=== PATIENT | female | born 1965 | race Caucasian/White ===

== ENCOUNTER 2017-12-06 21:16 | Inpatient (IN) | payer BC ==
[~2017-12-06] VITALS: Ht 165.1 cm; Wt 113.4 kg
[2017-12-06] MEDS ORDERED: NITROGLYCERIN OINT 1GM/INCH UDPKT TD ONE (22:45)
[2017-12-06 23:13] LABS: BASOPHILS % 0.6 % (0.0-2.0); EOSINOPHILS % 3.2 % (0.0-5.0); HEMATOCRIT. 36.5 % (36.0-48.0); HEMOGLOBIN. 11.1 g/dL (12.0-16.0); LYMPHOCYTES % 12.1 % (20.0-50.0); MEAN CORPUSCULAR HEMOGLOBIN 20.2 pg (28.0-32.0); MEAN CORPUSCULAR VOLUME 66.7 fL (81.0-99.0); MEAN PLATELET VOLUME 9.1 fl (7.4-10.4); NEUTROPHILS % 79.1 % (40.0-76.0); PLATELET 291 x1000/uL (130-400); RED BLOOD CELL COUNT 5.48 mill/uL (4.2-5.4); RED CELL DISTRIBUTION WIDTH 22.3 % (11.6-14.6)
[2017-12-06 23:16] LABS: CHLORIDE 109 mEq/L (98-107)
[2017-12-06 23:19] LABS: D-DIMER 1.72 mg/L FEU (<0.50); INR 0.9; PROTHROMBIN TIME 9.4 sec (9.1-11.1)
[2017-12-07] MEDS ORDERED: AZITHROMYCIN 500 MG in DEXT 5% WATER 250 ML IV ONE ×2
[2017-12-07] MEDS ORDERED: CEFTRIAXONE 1 G PREMIX 50 ML IV ONE
[2017-12-07] MEDS ORDERED: ONDANSETRON HCL 4MG/2ML INJ IV PRN (00:15)
[2017-12-07] MEDS ORDERED: IPRATROPIUM/ALBUTEROL 0.5-3(2.5)MG/3ML NEB INH PRN (00:15)
[2017-12-07] MEDS ORDERED: ACETAMINOPHEN 325MG TABLET PO PRN (00:15)
[2017-12-07] MEDS ORDERED: MAGNESIUM/ALUMINUM HYDROXIDE/SIMETHICONE 30ML UDC PO PRN (00:15)
[2017-12-07] MEDS ORDERED: CLONIDINE 0.1MG TABLET PO PRN (00:15)
[2017-12-07] MEDS ORDERED: IOHEXOL-350 100 ML BOTTLE ONE (01:07)
[2017-12-07] MEDS ORDERED: FUROSEMIDE 40MG/4ML VIAL IVP NR (01:30)
[2017-12-07 02:12] LABS: PLATELET ESTIMATE NORMAL
[2017-12-07 04:00] VITALS: BP 162/100
[2017-12-07] MEDS ORDERED: PROP80TA4 PO (04:43)
[2017-12-07 04:44] VITALS: BP 162/100
[2017-12-07 08:00] VITALS: BP 156/90
[2017-12-07 11:21] LABS: HEMATOCRIT 34.3 % (36.0-48.0); HEMOGLOBIN 10.4 g/dL (12.0-16.0); MEAN CORPUSCULAR HEMOGLOBIN 20.1 pg (28.0-32.0); PLATELET 252 x1000/uL (130-400); RED BLOOD CELL COUNT 5.19 mill/uL (4.2-5.4); RED CELL DISTRIBUTION WIDTH 22.2 % (11.6-14.6)
[2017-12-07] MEDS ORDERED: LOSARTAN POTASSIUM 50 MG TABLET PO SCH ×2 (11:45→21:00)
[2017-12-07 11:59] LABS: CHLORIDE 106 mEq/L (98-107)
[2017-12-07 12:00] VITALS: BP 148/78
[2017-12-07 12:14] LABS: PHOSPHORUS 3.3 mg/dL (2.5-4.9)
[2017-12-07] MEDS: PROPRANOLOL HCL 20MG TABLET PO SCH ×2 (12:32→21:12)
[2017-12-07] MEDS: IPRATROPIUM/ALBUTEROL 0.5-3(2.5)MG/3ML NEB HHN SCH ×2 (14:27→20:05)
[2017-12-07] MEDS: FUROSEMIDE 40MG/4ML VIAL IVP SCH (17:10)
[2017-12-07] MEDS: LOSARTAN POTASSIUM 50 MG TABLET PO SCH ×2 (17:10→21:12)
[2017-12-07 20:00] VITALS: BP 154/89
[2017-12-07 20:13] LABS: CLARITY URINE CLEAR (CLEAR); COLOR URINE YELLOW (YELLOW); KETONES URINE NEGATIVE (NEGATIVE); LEUKOCYTE ESTERASE URINE NEGATIVE (NEGATIVE); NITRITE URINE NEGATIVE (NEGATIVE); OCCULT BLOOD URINE NEGATIVE (NEGATIVE); PROTEIN URINE NEGATIVE (NEGATIVE); SPECIFIC GRAVITY URINE 1.014 (1.005-1.030); UROBILINOGEN URINE 0.2 E.U./dL (0.2-1.0)
[2017-12-07 20:46] LABS: *AMPHETAMINES SCREEN URINE NEGATIVE (NEGATIVE); *BARBITURATES SCREEN URINE NEGATIVE (NEGATIVE); *BENZODIAZEPINES SCREEN URINE NEGATIVE (NEGATIVE)
[2017-12-07 20:47] LABS: *COCAINE SCREEN URINE NEGATIVE (NEGATIVE); CANNABINOID URINE SCREEN NEGATIVE (NEGATIVE); METHADONE URINE SCREEN NEGATIVE (NEGATIVE); OPIATES URINE SCREEN NEGATIVE (NEGATIVE); PHENCYCLIDINE URINE SCREEN NEGATIVE (NEGATIVE)
[2017-12-08] VITALS: BP 157/87
[2017-12-08] MEDS: IPRATROPIUM/ALBUTEROL 0.5-3(2.5)MG/3ML NEB HHN SCH (02:05)
[2017-12-08 04:00] VITALS: BP 144/66
[2017-12-08] MEDS: FUROSEMIDE 40MG/4ML VIAL IVP SCH ×2 (06:30→17:08)
[2017-12-08 07:27] LABS: BASOPHILS % 0.5 % (0.0-2.0); EOSINOPHILS % 3.8 % (0.0-5.0); HEMATOCRIT. 34.4 % (36.0-48.0); HEMOGLOBIN. 10.6 g/dL (12.0-16.0); LYMPHOCYTES % 19.1 % (20.0-50.0); MEAN CORPUSCULAR HEMOGLOBIN 20.3 pg (28.0-32.0); MEAN PLATELET VOLUME 9.1 fl (7.4-10.4); NEUTROPHILS % 67.6 % (40.0-76.0); PLATELET 252 x1000/uL (130-400); RED BLOOD CELL COUNT 5.21 mill/uL (4.2-5.4); RED CELL DISTRIBUTION WIDTH 21.7 % (11.6-14.6)
[2017-12-08 07:34] LABS: CHLORIDE 106 mEq/L (98-107)
[2017-12-08 07:37] LABS: HDL CHOLESTEROL 51 mg/dL (40-59); LDL CHOLESTEROL 128 mg/dL (5-100)
[2017-12-08 08:00] VITALS: BP 151/101
[2017-12-08] MEDS: LOSARTAN POTASSIUM 50 MG TABLET PO SCH ×2 (08:43→20:47)
[2017-12-08] MEDS: PROPRANOLOL HCL 20MG TABLET PO SCH ×2 (08:44→20:48)
[2017-12-08] MEDS ORDERED: FUROSEMIDE 40MG/4ML VIAL IVP SCH (09:00)
[2017-12-08 12:00] VITALS: BP 147/81
[2017-12-08] MEDS: AMLODIPINE 5MG TABLET PO SCH ×2 (13:22→20:47)
[2017-12-08] MEDS: POTASSIUM CHLORIDE 20MEQ TABLET SR PO SCH (13:22)
[2017-12-08 16:00] VITALS: BP 134/67
[2017-12-08 20:00] VITALS: BP 133/70
[2017-12-09] VITALS: BP 130/72
[2017-12-09 04:00] VITALS: BP 148/75
[2017-12-09] MEDS: FUROSEMIDE 40MG/4ML VIAL IVP SCH ×2 (06:33→06:38)
[2017-12-09 06:59] LABS: BASOPHILS % 0.4 % (0.0-2.0); EOSINOPHILS % 3.9 % (0.0-5.0); HEMATOCRIT. 36.6 % (36.0-48.0); HEMOGLOBIN. 11.5 g/dL (12.0-16.0); LYMPHOCYTES % 18.6 % (20.0-50.0); MEAN CORPUSCULAR HEMOGLOBIN 20.7 pg (28.0-32.0); MEAN CORPUSCULAR VOLUME 66.3 fL (81.0-99.0); MONOCYTES % 9.4 % (2.0-8.0); NEUTROPHILS % 67.7 % (40.0-76.0); PLATELET 270 x1000/uL (130-400); RED BLOOD CELL COUNT 5.53 mill/uL (4.2-5.4); RED CELL DISTRIBUTION WIDTH 21.8 % (11.6-14.6)
[2017-12-09 07:07] LABS: CHLORIDE 105 mEq/L (98-107)
[2017-12-09 08:00] VITALS: BP 132/79
[2017-12-09] MEDS: AMLODIPINE 5MG TABLET PO SCH (08:43)
[2017-12-09] MEDS: LOSARTAN POTASSIUM 50 MG TABLET PO SCH (08:43)
[2017-12-09] MEDS: PROPRANOLOL HCL 20MG TABLET PO SCH (08:43)
[2017-12-09] MEDS: POTASSIUM CHLORIDE 20MEQ TABLET SR PO SCH (08:44)
[2017-12-09] MEDS ORDERED: REGADENOSON 0.4 MG/5 ML IV ONE ×2 (09:15→10:21)
[2017-12-09 11:39] VITALS: BP 131/57
[2017-12-09 13:48] VITALS: BP 131/57
== END 2017-12-09 14:30 | disposition home or self-care (01) | DRG 291 ==
LOC: ER 21:16 → 7WST 12-07 02:13 → EDBEDREQDT 12-07 02:18 → EDBEDREQ 12-07 02:18 → EDBEDREQTM 12-07 02:18 → ENRESERV 12-07 02:24 → CANRESERV 12-07 02:53
PROVIDERS: ADMIT Family Medicine Adult Medicine; ATTEND Family Medicine Adult Medicine
DX: I11.0 Hypertensive heart disease with heart failure (principal); J96.00 Acute respiratory failure, unspecified whether with hypoxia or hypercapnia; J18.9 Pneumonia, unspecified organism; I50.33 Acute on chronic diastolic (congestive) heart failure; G43.909 Migraine, unspecified, not intractable, without status migrainosus; D50.9 Iron deficiency anemia, unspecified; Z80.9 Family history of malignant neoplasm, unspecified; Z79.899 Other long term (current) drug therapy
CPT/HCPCS: 36415; 71045; 71275; 78452; 80048; 80061; 80305; 83036; 83605; 83735; 83880; 84100; 84145; 84443; 84484; 85027; 85379; 93005; 93017; 93306; 93970; 94640; 96365; 96375; 99291; A9500; J0456; J0696; J1940; J2785; J7050; J7060; J7620; Q9967